=== PATIENT | male | born 1955 | race Caucasian/White ===

== ENCOUNTER 2018-11-21 10:14 | Inpatient (IN) ==
[2018-11-21] MEDS ORDERED: ONDANSETRON 4 MG/2 ML VIAL IVP PRN (11:06)
[2018-11-21] MEDS ORDERED: LIDOCAINE W/ SODIUM BICARB 0.5 ML SYR SUBD PRN (11:06)
[2018-11-21] MEDS ORDERED: BENZONATATE 100 MG CAPSULE PO PRN (11:06)
--- NOTE | 2018-11-21 11:06 | PDOC ---
HPI - History of Present Illness History of Present Illness: This very nice 63-year-old gentleman was seen in the ER yesterday by Dr. Suarez he was treated there for early onset pneumonia with the Zithromax and was sent home. Blood cultures were drawn at that time which came back positive for strep patient was called back and admitted for inpatient treatment of community-acquired pneumonia with IV antibiotics. Patient has been sick for over 2 weeks losing weight he is in extreme pain out of the ordinary with the CT scan findings on the right side of his lower chest also has pain on deep inspiration. Past Medical History Medical History: GERD Tobacco Use: Never Smoker In the Past 12 Months, Have Used or Abuse Any of the Following Substance: None Medication / Allergies Home Medications: Home Medications Medication Instructions Recorded Confirmed Azithromycin [Zithromax] 250 mg PO DAILY #6 tab 11/20/18 11/21/18 Meloxicam [Mobic] 7.5 mg PO DAILY #20 tab 11/20/18 11/21/18 Omeprazole 20 mg PO DAILY #30 tab. 11/20/18 11/21/18 Allergies/Adverse Reactions: Allergies Allergy/AdvReac Type Severity Reaction Status Date / Time No Known Drug Allergies Allergy Not Verified 11/20/18 13:42 Applicable Review of Systems - Review of Systems All Systems: Reviewed & No Additional Complaints Except as Stated Exam - Vitals Vital Signs: Vital Signs Temperature 97.9 F Temperature Source Temporal Artery Scan Pulse Rate [Pulse Oximeter] 78 Respiratory Rate 24 Blood Pressure [Right Arm] 149/63 Pulse Ox 95 Oxygen Delivery Method Room Air Height 6 ft Weight 195 lb 12.8 oz - General General Appearance: No Acute Distress, Cooperative - Respiratory Respiratory Exam: POSITIVE: Decreased Breath Sounds - Cardiovascular Cardiovascular Exam: POSITIVE: RRR, No Murmur, No Clicks, No Gallops, No Rubs, PMI Non-Displaced - GI/Abdominal GI/Abdominal Exam: POSITIVE: Normal Bowel Sounds, Non Tender, Non Distended, Soft, No Masses, No Hepatomegaly, No Splenomegaly, No Organomegaly Assessment and Plan - Patient Problems (1) Bronchitis Current Visit: No Status: Acute Code(s): J40 - Bronchitis, not specified as acute or chronic (2) Pneumonia Current Visit: Yes Status: Acute Comment: Admit to inpatient Rocephin and Zithromax IV patient has pain on deep inspiration more than I would expect with a pneumonia but no signs of PE I also ordered an ultrasound of his hemangioma of the liver. I will also order troponin and EKG Code(s): J18.9 - Pneumonia, unspecified organism
--- NOTE | 2018-11-21 12:00 | EKG ---
[address] [address] Measurements Intervals [place] Rate: 79 P: 37 PA: 156 QRS: -10 QRSD: 97 T: 30 QT: 385 QTc: 420 Interpretive Statements SINUS RHYTHM POSSIBLE RIGHT VENTRICULAR CONDUCTION DELAY [RSR (QR) IN V1/V2] VOLTAGE CRITERIA FOR LVH [MEETS CRITERIA IN ONE OF: R(aVL), S(V1), R(V5), R(V5/V6)+S(V1)] POSSIBLE SEPTAL MYOCARDIAL INFARCTION [30 ms Q WAVE IN V1/V2], PROBABLY OLD Compared to ECG 11/20/2018 13:47:37 No significant changes Electronically Signed On 11-21-18 12:14:01 MDT by Glenroy Doshi MD [email or web address]
[2018-11-21] MEDS: cefTRIAXone Inj 2 GM in Sodium Chloride 0.9% 100 ML IV SCH (12:46)
[2018-11-21] MEDS: IPRATROPIUM/ALBUTEROL SULFATE 3 ML NEB NEB SCH ×3 (13:08→19:49)
[2018-11-21] MEDS: OMEPRAZOLE 20 MG CAPSULE PO SCH (13:47)
[2018-11-21] MEDS: ASCORBIC ACID Chewable 500 MG TABLET PO SCH (13:48)
[2018-11-21 14:49] LABS: BASOPHILS # (AUTO) 0.02 10*3/UL; BASOPHILS % (AUTO) 0.2 % (0-1); EOSINOPHILS # (AUTO) 0.06 10*3/UL; EOSINOPHILS % (AUTO) 0.7 % (0-8); Hemoglobin [HGB] 10.9 g/dL (14.0-18.0); LYMPHOCYTES # (AUTO) 1.09 10*3/uL; MEAN CORPUSCULAR HEMOGLOBIN 27.5 PG (27-31); MEAN CORPUSCULAR HGB CONC 32.1 g/dL (33-37); MEAN CORPUSCULAR VOLUME 85.9 FL (80-90); MEAN PLATELET VOLUME 10.4 FL (7.4-12.2); MONOCYTES # (AUTO) 0.67 10*3/UL (0.3-0.8); NEUTROPHILS # (AUTO) 6.52 10*3/UL; NEUTROPHILS % (AUTO) 77.7 % (50-80); PLATELET MORPHOLOGY COMMENT NORMAL MORPHOLOGY (NORM); RBC MORPHOLOGY COMMENT NORMAL MORPHOLOGY (NORM); RED BLOOD COUNT 3.96 10^6/uL (4.70-6.10); WBC MORPHOLOGY COMMENT NORMAL MORPHOLOGY (NORM)
[2018-11-21 14:59] LABS: BLOOD UREA NITROGEN 14 mg/dL (7-22); SERUM ALBUMIN 3.2 g/dL (3.5-4.8)
--- NOTE | 2018-11-21 22:39 | DI ---
GALLBLADDER AND LIVER ULTRASOUND, 11/21/2018 11:21 AM: Clinical History: Large cavernous hemangioma identified on a recent CT scan. Previous Exam: None at this facility. Technique: Right upper quadrant scanned in multiple projections with Color Doppler ultrasound. Liver Texture: The liver overall has a normal sonographic texture. Small cysts are seen in the right lobe of the liver. Toward the lateral half of the right lobe of the liver is an inhomogeneous markedl y hyperechoic and well-circumscribed lesion that sonographically is consistent with a large cavernous hemangioma. On the CT scan, the vessels were visualized within this lesion. However, with color Dopp ler ultrasound, vascularity could not be identified probably due to the fine capillary structures wit hin this hemangioma. Liver Size: Enlarged. 170 mm. Gallbladder: Well distended. No gallstones. Normal gallbladder wall thickness. Negative Padilla's sign . Common Bile Duct: 6 mm. Pancreas: Normal head, neck, and body. Right Kidney: Normal right kidney. IVC and Aorta: Normal IVC and aorta. Additional Findings: Small right pleural effusion. READIN. The lesion in the right lobe is consistent with a giant cavernous hemangioma. There is hepatomega ly. Small simple cysts are visualized in the right lobe. 2. Small right pleural effusion. 3. Normal gallbladder but the common duct is mildly dilated at 6 mm. 4. The right kidney, IVC, aorta, and pancreas are normal.
[2018-11-22 05:10] LABS: BASOPHILS # (AUTO) 0.02 10*3/UL; BASOPHILS % (AUTO) 0.3 % (0-1); EOSINOPHILS # (AUTO) 0.13 10*3/UL; EOSINOPHILS % (AUTO) 1.7 % (0-8); Hematocrit [HCT] 33.7 % (42.0-52.0); Hemoglobin [HGB] 10.6 g/dL (14.0-18.0); LYMPHOCYTES # (AUTO) 0.99 10*3/uL; MEAN CORPUSCULAR HGB CONC 31.5 g/dL (33-37); MEAN PLATELET VOLUME 10.9 FL (7.4-12.2); MONOCYTES # (AUTO) 0.63 10*3/UL (0.3-0.8); MONOCYTES % (AUTO) 8.1 % (5-15); NEUTROPHILS # (AUTO) 5.96 10*3/UL; NEUTROPHILS % (AUTO) 76.7 % (50-80); RED BLOOD COUNT 3.92 10^6/uL (4.70-6.10)
[2018-11-22 05:18] LABS: BLOOD UREA NITROGEN 12 mg/dL (7-22)
[2018-11-22 05:20] LABS: PLATELET MORPHOLOGY COMMENT NORMAL MORPHOLOGY (NORM); RBC MORPHOLOGY COMMENT NORMAL MORPHOLOGY (NORM); WBC MORPHOLOGY COMMENT NORMAL MORPHOLOGY (NORM)
[2018-11-22] MEDS: IPRATROPIUM/ALBUTEROL SULFATE 3 ML NEB NEB SCH ×4 (06:49→21:14)
[2018-11-22] MEDS: OMEPRAZOLE 20 MG CAPSULE PO SCH (07:12)
[2018-11-22] MEDS: ASCORBIC ACID Chewable 500 MG TABLET PO SCH (09:16)
--- NOTE | 2018-11-22 11:11 | PDOC(PROG) ---
Interval History: Patient is doing much better this morning and the pain in the right lower lobe of his back is less he is able to get up from bed walk around and take deep breaths. No fever chills Objective : Data - Labs CBC and BMP: 11/22/18 04:35 11/22/18 04:35 Objective : Exam - General General Appearance: No Acute Distress, Cooperative - Respiratory Respiratory Exam: Clear to Auscultation - Bilaterally, Breathing Non Labored, Normal To Percussion, Normal to Percussion and Palpation - Cardiovascular Cardiovascular Exam: RRR, No Murmur, No Clicks, No Gallops, No Rubs, PMI Non- Displaced - Extremities Extremities Exam: No Clubbing Present, No Edema Present, No Cyanosis Present Assessment and Plan - Patient Problems (1) Pneumonia Current Visit: Yes Status: Acute Comment: Most likely strep pneumo right lower lobe discussed with Dr. Francisco Duran infectious disease presented the case most likely pneumonia against of his pleura which was given him the pain with 1 day of antibiotics patient has improved blood cultures are pending for ID and sensitivity growing strep in both bottles. Code(s): J18.9 - Pneumonia, unspecified organism (2) Hemangioma of liver Current Visit: Yes Status: Acute Comment: I called the referral Center in [place] asked to speak to interventional radiologist they were busy and what they said they will call me back Code(s): D18.03 - Hemangioma of intra-abdominal structures
[2018-11-22] MEDS: cefTRIAXone Inj 2 GM in Sodium Chloride 0.9% 100 ML IV SCH (12:19)
[2018-11-23] MEDS: IPRATROPIUM/ALBUTEROL SULFATE 3 ML NEB NEB SCH ×3 (06:48→15:04)
[2018-11-23] MEDS: OMEPRAZOLE 20 MG CAPSULE PO SCH (07:49)
[2018-11-23] MEDS: ASCORBIC ACID Chewable 500 MG TABLET PO SCH (09:33)
--- NOTE | 2018-11-23 11:39 | PDOC(PROG) ---
Interval History: Patient is doing great and feels awesome back to his normal self. Did discuss with Dr. Schmidt patient never received his echo today hopefully will be read fast because of alpha strep grown in the blood. No need for LAMBERT at present time as per ID continue Rocephin IV also cultures are been sent to [facility] for finals result denies chest pain nausea vomiting no pleuritic pain Objective : Data - Labs CBC and BMP: 11/22/18 04:35 11/22/18 04:35 Objective : Exam - General General Appearance: No Acute Distress, Cooperative - Respiratory Respiratory Exam: Clear to Auscultation - Bilaterally, Breathing Non Labored, Normal To Percussion, Normal to Percussion and Palpation - Cardiovascular Cardiovascular Exam: RRR, No Murmur, No Clicks, No Gallops, No Rubs, PMI Non- Displaced - GI/Abdominal GI/Abdominal Exam: Normal Bowel Sounds, Non Tender, Non Distended, Soft, No Masses, No Hepatomegaly, No Splenomegaly, No Organomegaly - Extremities Extremities Exam: No Clubbing Present, No Edema Present, No Cyanosis Present Assessment and Plan - Patient Problems (1) Pneumonia Current Visit: Yes Status: Acute Comment: Continue IV Rocephin patient has bacteremia echo was done awaiting results cultures are sent to [facility] for speciation Code(s): J18.9 - Pneumonia, unspecified organism (2) Hemangioma of liver Current Visit: Yes Status: Acute Comment: Follow-up as outpatient with primary care physician Code(s): D18.03 - Hemangioma of intra-abdominal structures
[2018-11-23] MEDS: cefTRIAXone Inj 2 GM in Sodium Chloride 0.9% 100 ML IV SCH (13:11)
[2018-11-23 14:23] LABS: BASOPHILS # (AUTO) 0.03 10*3/UL; BASOPHILS % (AUTO) 0.3 % (0-1); EOSINOPHILS % (AUTO) 1.1 % (0-8); Hematocrit [HCT] 35.8 % (42.0-52.0); Hemoglobin [HGB] 11.4 g/dL (14.0-18.0); LYMPHOCYTES # (AUTO) 1.02 10*3/uL; MEAN CORPUSCULAR HEMOGLOBIN 27.1 PG (27-31); MEAN CORPUSCULAR HGB CONC 31.8 g/dL (33-37); MEAN CORPUSCULAR VOLUME 85.2 FL (80-90); MEAN PLATELET VOLUME 10.5 FL (7.4-12.2); MONOCYTES # (AUTO) 0.58 10*3/UL (0.3-0.8); MONOCYTES % (AUTO) 6.3 % (5-15); NEUTROPHILS # (AUTO) 7.42 10*3/UL; NEUTROPHILS % (AUTO) 80.8 % (50-80)
[2018-11-23 14:37] LABS: BLOOD UREA NITROGEN 9 mg/dL (7-22); SERUM ALBUMIN 3.3 g/dL (3.5-4.8)
[2018-11-23 14:50] LABS: PLATELET MORPHOLOGY COMMENT NORMAL MORPHOLOGY (NORM); RBC MORPHOLOGY COMMENT SEE COMMENTS (NORM); WBC MORPHOLOGY COMMENT NORMAL MORPHOLOGY (NORM)
[2018-11-23 16:29] VITALS: BP 150/61; RESP 18; TEMP 98.9; O2SAT 94
--- NOTE | 2018-11-23 18:13 | DCSUMMARY ---
Hospitalization Summary Hospital Course: Final Discharge Diagnosis: Current Visit Problems Problem Status Onset Code Pneumonia Acute J18.9 Hemangioma of liver Acute D18.03 Bacteremia Possible vegetation on transthoracic echo Diagnostic Data, Laboratory Data, and Procedures of Signifigance: CBC and BMP 11/23/18 14:16 11/23/18 14:16 Large amount of alpha strep growing in both bottles sent to [facility] for sensitivities History and Physical pertinent to Admission: Course of Hospitalization: Is a very nice 63-year-old gentleman who was initially seen in the ER for pleuritic pain was sent home with Zithromax but called back and came back to the ER because of the severe pain in his right lower lung and the back. After talking to a more specifically he's been sick for over 2 months with the waxing and waning symptoms but nothing the like the pain or the in his right lower back and the pleuritic pain. His pain were very disproportional compared to the CT findings of right lower lobe atelectasis. After IV Rocephin and the next morning the patient improved dramatically and is now is back to his normal self with no more pleuritic pain on deep inspiration and no more back pain. Considering what is growing in his blood cultures IV and obtained a transthoracic echo which was read by Dr. Sevilla which showed possible vegetation and severe turbulence on the aortic valve I discussed the case with Dr. Francisco Duran and Dr. Joseph which will see the patient and at the [facility] [place] Joseph will perform a LAMBERT and Dr. Duran will consult on him for further evaluation and treatment. Patient has decided to go to [facility] later tonight so he can work out logistics with his . He has been receiving Rocephin 2 g daily IV patient is clinically stable. He also has a 6 x 8 hemangioma of his liver. Could also benefit from a and are interventional radiologist consult while he is at the hospital. accepted By Dr Alston On the date of discharge, the patient was examined: Gen.: No acute distress, alert, nontoxic Heart: Regular rate and rhythm, no murmurs, clicks, gallops, or rubs Lungs: Clear to auscultation bilaterally, breathing is nonlabored Abdomen/GI: Normal tones on auscultation, soft, nontender, nondistended Musculoskeletal/extremities: No clubbing, cyanosis, or edema Vitals reviewed and are listed below Laboratory Results 11/23/18 11/23/18 14:16 14:16 WBC 9.19 RBC 4.20 L Hgb 11.4 L Hct 35.8 L MCV 85.2 MCH 27.1 MCHC 31.8 L RDW Std Deviation 39.2 RDW Coeff of Sachi 12.9 Plt Count 251 MPV 10.5 Immature Gran % (Auto) 0.4 Neut % (Auto) 80.8 H Lymph % (Auto) 11.1 Wake % (Auto) 6.3 Eos % (Auto) 1.1 Baso % (Auto) 0.3 Immature Gran # (Auto) 0.04 Neut # (Auto) 7.42 Lymph # (Auto) 1.02 Wake # (Auto) 0.58 Eos # (Auto) 0.10 Baso # (Auto) 0.03 WBC Morphology Comment Normal morphology Plt Morphology Comment Normal morphology RBC Morph Comment See comments Sodium 142 Potassium 4.6 Chloride 108 Carbon Dioxide 25 Anion Gap 9 BUN 9 Creatinine 0.9 Estimated GFR > 60 BUN/Creatinine Ratio 10.00 Glucose 110 Calculated Osmolality 293.0 H Calcium 8.5 L Total Bilirubin 0.2 L AST 19 L ALT 20 L Alkaline Phosphatase 69 Total Protein 7.0 Albumin 3.3 L Globulin 3.7 Albumin/Globulin Ratio 0.80 L Assessment and Plan: 1. As per discharge assessments above 2. Disposition: 3. Condition on discharge, stable and improved. 4. Diet: regular diet 5. Activities: resume normal activities 6. Follow-Up: 1. PCP 2. 7. Medications at the Time of Discharge: Home Medications Medication Instructions Recorded Confirmed Azithromycin [Zithromax] 250 mg PO DAILY #6 tab 11/20/18 11/21/18 Meloxicam [Mobic] 7.5 mg PO DAILY #20 tab 11/20/18 11/21/18 Omeprazole 20 mg PO DAILY #30 tab. 11/20/18 11/21/18 Active Medications Generic Name Dose Route Start Last Admin Trade Name Freq PRN Reason Stop Dose Admin Albuterol/Ipratropium 3 ml 11/21/18 11:15 11/23/18 15:04 Duoneb Neb Soln NEB 3 ml RTQID MARV Administration Ascorbic Acid 1,000 mg 11/21/18 11:15 11/23/18 09:33 Vitamin C PO 1,000 mg DAILY MARV Administration Benzonatate 100 mg 11/21/18 11:06 Tessalon Perle PO DAILY PRN Cough Ceftriaxone Sodium 2 gm/ 100 mls @ 200 mls/hr 11/21/18 12:30 11/23/18 13:11 Sodium Chloride IV 200 mls/hr Q24H MARV Administration Sodium Chloride 25 mls @ 200 mls/hr 11/21/18 11:06 11/23/18 14:03 Normal Saline 0.9% IV 200 mls/hr .Post Infusion PRN Administration No Primary IV for Flush ONLY Azithromycin 500 mg/ Sodium 250 mls @ 250 mls/hr 11/21/18 13:00 11/23/18 14:00 Chloride IV 250 mls/hr Q24H MARV Administration Lidocaine HCl 0.5 ml 11/21/18 11:06 Lidocaine Buffered Inj SUBD ONCE PRN IV Starts Omeprazole 20 mg 11/21/18 12:30 11/23/18 07:49 Prilosec PO 20 mg AC BK MARV Administration Ondansetron HCl 4 mg 11/21/18 11:06 Zofran Inj IVP Q4H PRN NAUSEA / VOMITING 8. Time, care, counseling and coordination of care for this discharge is greater than 30 minutes. Exam - Vitals Vital Signs: Vital Signs Temperature 98.9 F Temperature Source Temporal Artery Scan Pulse Rate [Pulse Oximeter] 83 Pulse Rate [LEFT FINGER] 83 Pulse Rate 78 Respiratory Rate 18 Blood Pressure [Left Arm] 164/61 Blood Pressure [Right Arm] 150/61 Pulse Ox [LEFT FINGER] 94 Pulse Ox 94 Oxygen Flow Rate [LEFT FINGER] 1 Oxygen Flow Rate 1 Oxygen Delivery Method [LEFT Room Air FINGER] Oxygen Delivery Method Room Air Height 6 ft Weight 195 lb 12.8 oz Patient Problems - Patient Problem List (1) Pneumonia Current Visit: Yes Status: Acute Code(s): J18.9 - Pneumonia, unspecified organism Category: Medical (2) Hemangioma of liver Current Visit: Yes Status: Acute Code(s): D18.03 - Hemangioma of intra- abdominal structures Category: Medical
== END 2018-11-23 19:27 | disposition short-term general hospital (02) | DRG 195 ==
LOC: MED/SURG 10:14
PROVIDERS: ADMIT Internal Medicine; ATTEND Internal Medicine